=== PATIENT | female | born 1995 | race Caucasian/White ===

== ENCOUNTER 2020-01-22 01:09 | Inpatient (IN) | payer BC ==
[2020-01-22] MEDS ORDERED: Ondansetron 4 MG/2 ML SDV IVPUSH PRN (10:31)
[2020-01-22] MEDS ORDERED: Nalbuphine 10 MG/1 ML Vial IV ONE (10:31)
[2020-01-22] MEDS ORDERED: Oxytocin/Normal Saline 30 UNIT/500 ML BAG IV SCH (10:45)
[2020-01-22] MEDS: Lactated Ringers 1,000 ML IV SCH ×2 (11:40→12:10)
[2020-01-22] MEDS ORDERED: EPINEPHrine 1 MG/1 ML Amp ONE (11:54)
[2020-01-22] MEDS ORDERED: Sodium Bicarbonate 4.2% 2.5 MEQ/5 ML SDV ONE (11:54)
[2020-01-22] MEDS ORDERED: fentaNYL 100 MCG/2 ML SDV ONE (11:54)
--- NOTE | 2020-01-22 12:10 | PCM.SN.2 ---
- Free Text/Narrative Note: Intrathecal, sitting position, sterile prep and drape. 1% lidocaine w bicarb for skinwheal to L2 L3 interspace. Introducer, 24 ga pencan x 1. Pos CSf, neg heme, neg parasthesia. 0.1 ml pf 1:1000 epi, 20 mcg pf sufenta, 30 mcg pf fentanyl, 0.4 ml pf NS and 6 MG OF 0.75 % PF bupivacaine injected after CSF aspiration. Pt to L lateral position. Procedure time 1150 to 1220
[2020-01-22] MEDS ORDERED: Carboprost Tromethamine 250 MCG/1 ML Amp IM PRN ×2 (12:48→15:35)
[2020-01-22] MEDS ORDERED: Misoprostol 400 MCG (4 X 100 MCG TAB) RECTAL ONE (12:48)
[2020-01-22] MEDS ORDERED: Tranexamic Acid 1,000 MG in Sodium Chloride 0.9% 100 ML IV ONE (12:48)
[2020-01-22] MEDS ORDERED: Methylergonovine 0.2 MG/1 ML Amp IM PRN (12:48)
[2020-01-22] MEDS ORDERED: Simethicone 80 MG Tab.Chew PO PRN (15:35)
[2020-01-22] MEDS ORDERED: Oxytocin 10 Units/1 ML SDV IM PRN (15:35)
[2020-01-22] MEDS ORDERED: Benzocaine/Menthol 20%-0.5% Spray 56 GM Canister TOP PRN (15:35)
[2020-01-22] MEDS ORDERED: Sodium Chloride 0.9% 10 ML Syringe FLUSH PRN (15:35)
[2020-01-22] MEDS ORDERED: Misoprostol 400 MCG (4 X 100 MCG TAB) RECTAL PRN (15:35)
[2020-01-22] MEDS ORDERED: Zolpidem 5 MG Tab PO PRN (15:35)
[2020-01-22] MEDS ORDERED: Tranexamic Acid 1,000 MG in Sodium Chloride 0.9% 100 ML IV PRN (15:35)
[2020-01-22] MEDS: Ibuprofen 800 MG Tab PO PRN (19:27)
[2020-01-22] MEDS: Docusate Sodium 100 MG Cap PO PRN (19:27)
[2020-01-23] MEDS: Acetaminophen 325 MG Tab PO PRN ×2 (00:13→09:00)
[2020-01-23] MEDS: Ibuprofen 800 MG Tab PO PRN ×2 (03:02→12:06)
[2020-01-23] MEDS ORDERED: Prenatal Multivitamin with Calcium/Folic Acid/Iron Tab PO SCH (09:00)
[2020-01-23] MEDS: Docusate Sodium 100 MG Cap PO PRN (09:01)
--- NOTE | 2020-01-23 12:38 | DEL ---
DATE: 01/22/2020 LOCATION: [facility]. PREDELIVERY DIAGNOSES: Intrauterine at term, group B strep negative, admitted in active labor. PROCEDURE: Normal spontaneous vaginal delivery. Delivering clinician was Dr. Olsen. FINDINGS: There was a viable who weighed 7 pounds 14 ounces. score of 8 and 9. Placenta was delivered intact. There was a second-degree midline laceration which was repaired. ESTIMATED BLOOD LOSS: 400 mL. PROCEDURE IN DETAIL: The patient was admitted in active labor and augmented with artificial rupture of membranes and Pitocin. She was group B strep negative. The patient did receive an intrathecal. The patient became complete and pushed the infant's head out successfully. It should be noted that there was slightly more bleeding than normal during the second stage of labor. This was likely due to a vaginal laceration. The shoulder was then delivered, and the was delivered and placed on the maternal abdomen. Again, the infant was doing well, 7 pounds 14 ounces. score of 8 and 9. The cord was clamped and cut. The cord blood was collected. The placenta delivered intact without any difficulty. There was a second-degree midline laceration, which was repaired in the standard fashion. A few [id number] of 3-0 Vicryl were placed, this created excellent hemostasis. At the end of the procedure, the uterus was firm after the third stage Pitocin and the laceration was hemostatic. Mom and baby were both doing well. Again, estimated blood loss was roughly 400 mL. We will check a hemoglobin in the morning. [facility] /[id number] [address] HOSPITALLina
--- NOTE | 2020-01-23 12:48 | PN ---
DATE: 01/23/2020 LOCATION: [facility]. SUBJECTIVE: The patient is day 1 from a vaginal delivery. Mom and baby are both doing well. Her vaginal bleeding has slowed significantly. PHYSICAL EXAMINATION: Vital Signs: The patient is afebrile. Heart rate is 77 to 107, blood pressure 107 to 115 over 60 to 78, heart rate 75 to 89, and respiratory rate 18. The patient's blood type is A negative. Baby's blood type is pending. She is rubella nonimmune. Fundus is firm below the umbilicus. Extremities: Have no tenderness. No edema. The patient did have a pre-delivery hemoglobin which was 13.3 and this morning white count is 15.8, hemoglobin 8.8, and platelets 178. ASSESSMENT AND PLAN: day #1 status post vaginal delivery with some acute blood-loss anemia, therefore we will continue iron. Otherwise, we will continue cares and patient desires discharge at 24 hour post . BRITTNY /[id number] EDVIN
[2020-01-23] MEDS ORDERED: fentaNYL 100 MCG/2 ML SDV ITHECAL ONE (17:49)
[2020-01-23] MEDS ORDERED: Sodium Chloride 0.9% 20 ML SDV ONE (17:49)
[2020-01-23] MEDS ORDERED: EPINEPHrine 1 MG/1 ML Amp ONE (17:49)
[2020-01-23] MEDS ORDERED: Sodium Bicarbonate 4.2% 2.5 MEQ/5 ML SDV ONE (17:49)
--- NOTE | 2020-01-24 07:40 | HP ---
HISTORY OF PRESENT ILLNESS: The patient is a 24-year-old G1 at 40 weeks gestational age, who presented to Labor and Delivery with onset of painful contractions. No leakage of fluid. No vaginal bleeding. Good movement. OB HISTORY: She is a G1. This is her first baby. 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 She thinks maybe she had an abnormal Pap smear previously. PAST MEDICAL HISTORY: Negative. PAST SURGICAL HISTORY: Negative. SOCIAL HISTORY: The patient does not smoke. ALLERGIES: The patient has no known drug allergies. CARE: The patient's blood type is A negative. She is rubella nonimmune. Syphilis negative. Hepatitis B negative. HIV negative. Gonorrhea and chlamydia negative. Hepatitis C negative. Her quad screen was negative. Ultrasound was normal consistent with dates. Posterior placenta and normal anatomy. 1-hour was 112 and group B Strep was negative. PHYSICAL EXAMINATION: Vital Signs: The patient's temperature 37.1, heart rate 88, blood pressure 136/74, respiratory rate 14. Genitourinary: External monitoring is reactive, reassuring, category 1. She is alea now roughly every 5 to 7 minutes. She is COVID negative. Cervix is 3, 80, and is now -1 almost 0, which is a change that the labor nurse has checked her. ASSESSMENT AND PLAN: This is an intrauterine at term, group B Strep negative, definitely what appears to be late latent labor, early active labor. I did offer either let this patient go home and see if the contractions will start to space together more or we could actively manage her in the form of artificial rupture of membranes, and she did opt to go with the AROM. There was clear fluid. We will plan for a vaginal delivery. She will let us know if she needs anything for pain. [facility] /[id number]
== END 2020-01-23 17:50 | disposition home or self-care (01) | DRG 560 ==
LOC: DL.OBCHECK 01:09 → UNDOADMOB 03:14 → DL.OB 03:14 → OBSVTOIN 15:11 → DL.OB 15:11 → INTOOBSV 15:11
PROVIDERS: ADMIT Obstetrics & Gynecology; ATTEND Obstetrics & Gynecology
PROC: 10E0XZZ Delivery of Products of Conception, External Approach (ICD-10-PCS; principal; 2020-01-22)
PROC: 3E0R3BZ Introduction of Anesthetic Agent into Spinal Canal, Percutaneous Approach (ICD-10-PCS; 2020-01-22)
PROC: 0KQM0ZZ Repair Perineum Muscle, Open Approach (ICD-10-PCS; 2020-01-22)
DX: O48.0 Post-term pregnancy (principal); Z3A.40 40 weeks gestation of pregnancy; Z37.0 Single live birth; D62 Acute posthemorrhagic anemia; O70.1 Second degree perineal laceration during delivery; Z20.828 Contact with and (suspected) exposure to other viral communicable diseases
CPT/HCPCS: 01967; 36415; 36430; 51701; 59409; 85027; 85461; 86850; 86900; 86901; A9270-GY; J0171; J2405; J2590; J2790; J3010; J7120; U0002

== ENCOUNTER 2022-12-16 07:44 | Inpatient (IN) | payer BC ==
[2022-12-16] MEDS ORDERED: Sodium Chloride 0.9% 10 ML Syringe FLUSH PRN (08:38)
[2022-12-16] MEDS ORDERED: Acetaminophen 325 MG Tab PO PRN (08:38)
[2022-12-16] MEDS ORDERED: Lactated Ringers 1,000 ML IV ONE (08:38)
[2022-12-16] MEDS ORDERED: Lidocaine 1% 30 ML SDV INJECT ONE (08:38)
[2022-12-16] MEDS ORDERED: Penicillin G Potassium 5 MILLUNITS in Sodium Chloride 0.9% 100 ML IV ONE (08:38)
[2022-12-16] MEDS ORDERED: fentaNYL 100 MCG/2 ML SDV IVPUSH PRN (08:38)
[2022-12-16] MEDS ORDERED: Methylergonovine 0.2 MG/1 ML Amp IM PRN (08:38)
[2022-12-16] MEDS ORDERED: Carboprost Tromethamine 250 MCG/1 ML Amp IM PRN (08:38)
[2022-12-16] MEDS ORDERED: Ondansetron 4 MG/2 ML SDV IVPUSH PRN (08:38)
[2022-12-16] MEDS ORDERED: Tranexamic Acid 1,000 MG in Sodium Chloride 0.9% 100 ML IV PRN (08:38)
[2022-12-16] MEDS ORDERED: Misoprostol 400 MCG (4 X 100 MCG TAB) RECTAL PRN (08:38)
[2022-12-16] MEDS ORDERED: Oxytocin/Normal Saline 30 UNIT/500 ML BAG IV SCH (08:45)
[2022-12-16] MEDS ORDERED: Lactated Ringers 1,000 ML IV SCH (08:45)
[2022-12-16 08:46] LABS: HEMOGLOBIN 11.9 g/dL (12.0-16.0); MEAN CORPUSCULAR HEMOGLOBIN 30.7 pg (27.0-34.0); MEAN CORPUSCULAR HGB CONC 33.1 g/dL (33.0-35.0); MEAN CORPUSCULAR VOLUME 92.8 fL (80-100); RED BLOOD CELL COUNT 3.88 10^6/uL (4.2-5.4); WHITE BLOOD CELL COUNT,WBC 8.9 10^3/uL (5.0-10.0)
[2022-12-16] MEDS ORDERED: Penicillin G Potassium 3 MILLUNITS in Sodium Chloride 0.9% 100 ML IV SCH (13:00)
[2022-12-16] MEDS ORDERED: fentaNYL 100 MCG/2 ML SDV ONE (14:34)
[2022-12-16] MEDS ORDERED: Bupivacaine 0.25% 10 ML SDV ONE (14:34)
[2022-12-16] MEDS ORDERED: Phenylephrine HCl In 0.9% NaCl 1 MG/10 ML Syringe IVPUSH PRN (15:01)
[2022-12-16] MEDS ORDERED: ePHEDrine 50 MG/ML SDV IVPUSH PRN (15:01)
[2022-12-16] MEDS ORDERED: Ropivacaine 200 MG in Premix Bag 1 BAG EPIDUR SCH (15:15)
[2022-12-16] MEDS ORDERED: Oxytocin 10 Units/1 ML SDV IM PRN (17:01)
[2022-12-16] MEDS ORDERED: Simethicone 80 MG Tab.Chew PO PRN (17:01)
[2022-12-16] MEDS ORDERED: Benzocaine/Menthol 20%-0.5% Spray 78 GM Cannister TOP PRN (17:01)
[2022-12-16] MEDS ORDERED: Measles, Mumps & Rubella Vaccine 0.5 ML SDV SUBCUT ONE (17:01)
[2022-12-16] MEDS ORDERED: Witch Hazel Medicated Pads 100/Jar TOP PRN (19:45)
[2022-12-16] MEDS: Ibuprofen 800 MG Tab PO PRN (19:58)
[2022-12-16] MEDS: Docusate Sodium 100 MG Cap PO PRN (19:58)
[2022-12-16] MEDS: Acetaminophen 325 MG Tab PO PRN (23:01)
[2022-12-17] MEDS: Ibuprofen 800 MG Tab PO PRN ×2 (04:03→12:50)
[2022-12-17] MEDS: Acetaminophen 325 MG Tab PO PRN ×3 (05:51→18:02)
[2022-12-17] MEDS ORDERED: Prenatal Multivitamin with Calcium/Folic Acid/Iron Tab PO SCH (09:00)
[2022-12-17] MEDS: Docusate Sodium 100 MG Cap PO PRN (09:06)
== END 2022-12-17 18:50 | disposition home or self-care (01) | DRG 560 ==
LOC: DL.OBCHECK 07:44 → DL.OB 07:55 → OBSVTOIN 16:40 → DL.OB 16:40
PROVIDERS: ADMIT Family Medicine; ATTEND Family Medicine
PROC: 10E0XZZ Delivery of Products of Conception, External Approach (ICD-10-PCS; principal; 2022-12-16)
PROC: 0KQM0ZZ Repair Perineum Muscle, Open Approach (ICD-10-PCS; 2022-12-16)
PROC: 3E0R3BZ Introduction of Anesthetic Agent into Spinal Canal, Percutaneous Approach (ICD-10-PCS; 2022-12-16)
PROC: 00HU33Z Insertion of Infusion Device into Spinal Canal, Percutaneous Approach (ICD-10-PCS; 2022-12-16)
PROC: 10907ZC Drainage of Amniotic Fluid, Therapeutic from Products of Conception, Via Natural or Artificial Opening (ICD-10-PCS; 2022-12-16)
DX: O48.0 Post-term pregnancy (principal); Z3A.40 40 weeks gestation of pregnancy; Z37.0 Single live birth; O99.824 Streptococcus B carrier state complicating childbirth; O69.81X0 Labor and delivery complicated by cord around neck, without compression, not applicable or unspecified; O70.1 Second degree perineal laceration during delivery
CPT/HCPCS: 01967; 36415; 51701; 59409; 85027; 85461; 86850; 86900; 86901; 90471; 90707; A9270-GY; C1729; J2405; J2540; J2590; J2790; J2795; J3490; J7120